=== PATIENT | male | born 2005 | race Caucasian/White ===

== ENCOUNTER 2025-01-25 09:00 | Emergency (ER) | payer MEDICAID ==
[~2025-01-25] VITALS: Ht 172.7 cm; Wt 88.9 kg
[2025-01-25 09:10] VITALS: BP 135/79; PULSE 78; RESP 18; O2SAT 100
--- NOTE | 2025-01-25 09:36 | Physician Documentation ---
History of Present Illness ~ Chief Complaint: Head Injury Stated Complaint: HIT HEAD Time Seen by MD: 09:16 OK to notify your PCP?: Yes HPI Fell struck head on rock last night, now with headache and photophobia. Denies seizure activity, LOC, fever, N/V/D, focal neuro deficits. Tetanus within 5 years?: Yes Medication Reconciliation Allergies: Coded Allergies: No Known Allergies (Unverified , 01/25/25) Review of Systems All Other Systems at this time: Reviewed and Negative Physical Exam Vital Signs: RN Vital Signs have been reviewed: Yes, Temperature: 98.4, Source: Temporal, Heart Rate: 78, Respiratory Rate: 18, BP: 135/79, Pulse Oximetry: 100, Weight: 88.900 Oxygen Flow Rate: 0 Physical Exam Gen: no distress HEENT: PERRL, EOMI Pulm: no distress Cardiac: deferred Abdomen: deferred MSK: no deformity Skin: w/d/i Neuro: nonfocal Psych: unremarkable Progress Results/Orders Results/Orders Vital Signs 01/25/25 09:10 Temp 98.4 Pulse 78 Resp 18 B/P (MAP) 135/79 Pulse Ox 100 O2 Flow Rate 0 Medical Decision Making Additional information obtaine: N/A Findings 19 year old male with apparent concussion. No red flags, no indication for head or C-spine imaging. Counseled post-concussion symptoms, return precautions. Differential Dx:Considerations: Include: Closed head injury, Skull facture, Contusion Departure Disposition: HOME / SELF CARE / HOMELESS Impression: Primary Impression: Concussion Condition: Stable Discharge Instructions: Post Concussion Syndrome,Adult Referrals: NO PRIMARY CARE PROVIDER (PCP) Education Educated: Patient, Other Educated regarding: diagnosis, treatment, prognosis, need for follow up Signature Scribe Signature: .. Attestation: . ELIJAH BYERS MD Jan 25, 2025 09:36
[2025-01-25 09:43] VITALS: TEMP 98.4
== END 2025-01-25 09:44 | disposition home or self-care (01) ==
LOC: ER 09:01
DX: S06.0XAA Concussion with loss of consciousness status unknown, initial encounter (principal); W20.8XXA Other cause of strike by thrown, projected or falling object, initial encounter; Y93.89 Activity, other specified; Y92.89 Other specified places as the place of occurrence of the external cause; Y99.8 Other external cause status
CPT/HCPCS: 99282